=== PATIENT | female | born 1940 | race Caucasian/White ===

== ENCOUNTER → 2016-08-21 | Outpatient (CLI) | payer OTHER ==
[~2016-08-21] MED LIST: AMLO5TAB2 PO; AMLO5TAB4 PO; CITA40TA5 PO; CYCL-259 PO; ENAL5TAB PO; FERR325T20 PO; LEVO500T33 PO; LEVO50TA PO; METH4TAB2 PO; OXYC10TA6 PO; OXYC5CAP4 PO; OXYC5TAB3 PO; PANT40TA3 PO
== END | disposition home or self-care (01) ==
LOC: CFH 15:04
PROVIDERS: ATTEND Nurse Practitioner Primary Care
DX: I08.3 Combined rheumatic disorders of mitral, aortic and tricuspid valves (principal); E55.9 Vitamin D deficiency, unspecified; E03.9 Hypothyroidism, unspecified; E78.2 Mixed hyperlipidemia; F06.31 Mood disorder due to known physiological condition with depressive features; I10 Essential (primary) hypertension; K21.9 Gastro-esophageal reflux disease without esophagitis; R82.90 Unspecified abnormal findings in urine; D64.9 Anemia, unspecified; D72.829 Elevated white blood cell count, unspecified; R76.9 Abnormal immunological finding in serum, unspecified; R53.83 Other fatigue; F51.01 Primary insomnia; R60.0 Localized edema
CPT/HCPCS: 93306

== ENCOUNTER → 2017-11-17 | Outpatient (CLI) | payer OTHER ==
[~2017-11-17] MED LIST changes: +FERR325T18 PO; -FERR325T20 PO; -LEVO500T33 PO; +LEVO500T47 PO; +OXYC5CAP2 PO; -OXYC5CAP4 PO
== END | disposition home or self-care (01) ==
LOC: CFH 12:29
PROVIDERS: ATTEND Internal Medicine Cardiovascular Disease
DX: I08.3 Combined rheumatic disorders of mitral, aortic and tricuspid valves (principal); Z88.2 Allergy status to sulfonamides
CPT/HCPCS: 93306